=== PATIENT | female | born 1955 | race Caucasian/White ===

== ENCOUNTER 2022-03-04 10:39 | Emergency (ER) | payer OTHER, SELFPAY ==
--- NOTE | ~2022-03-04 | CT_ITS ---
EXAMINATION: CT abdomen pelvis wo con DATE: 03/04/2022 13:00 INDICATION: Right flank pain. Hematuria. TECHNIQUE: Computed tomography (CT) of the abdomen and pelvis was performed without intravenous contr ast. The dose-length product was 1309.68 mGy-cm. Automated exposure control and iterative reconstruct ion technique were employed. COMPARISON: None. FINDINGS: There are chronic interstitial changes in the right lower lobe with honeycombing, likely ch ronic. Heart size normal. No significant pleural or pericardial effusion. Mild atherosclerosis withou t aneurysm. No lymphadenopathy. No abnormal pelvic masses or fluid collections. Colonic diverticulosi s without evidence for diverticulitis. Nonobstructive bowel pattern. There are probable appendectomy changes. There are bilateral renal parapelvic cysts. There is a 5 mm distal right ureteral stone with moderate hydronephrosis. There is an 11 mm distal left ureteral stone with moderate left hydronephro sis. There is left renal atrophy. There are nonobstructing bilateral renal stones. Bladder is unremar kable. There are gallstones. There is nodular appearance to the liver surface, compatible with cirrho sis. There is splenomegaly. The pancreas, right adrenal gland are unremarkable. There is a 2 cm left adrenal mass measuring 15 Hounsfield units, most likely benign adenoma. IMPRESSION: 1. Bilateral distal ureteral stones in the pelvis with moderate bilateral hydroureteronephrosis. Left renal atrophy. 2: Cholelithiasis. 3: Cirrhosis of the liver with splenomegaly. 4: Left adrenal mass, most likely benign adenoma measuring 2 cm. Reviewed, dictated and finalized at location A. IMPRESSION: 1. Bilateral distal ureteral stones in the pelvis with moderate bilateral hydro ureteronephrosis. Left renal atrophy. 2: Cholelithiasis. 3: Cirrhosis of the liver with splenomegaly. 4: Left adrenal mass, most likely benign adenoma measuring 2 cm.
[2022-03-04 10:40] VITALS: BP 158/87; PULSE 103; RESP 20; TEMP 36.3; O2SAT 96
--- NOTE | 2022-03-04 11:39 | ED.ABDPAIN ---
HPI - Abdominal Pain General Chief Complaint: Urogenital-Female Stated Complaint: Blood in urine /pain in lower radiating to leg Time Seen by Provider: 03/04/22 10:43 Source: patient and RN notes reviewed Mode of arrival: ambulatory Limitations: no limitations History of Present Illness MD elicited complaint: flank pain Pertinent past history: diverticulitis and past UTI Onset (ago): day(s) (1) Pain Consistency: constant Location: R flank Severity: moderate Pain scale (0-10): 5 Quality: cramping and dull Radiation: suprapubic Migration to: other (down the right lower limb) Exacerbating factors: nothing Relieving factors: nothing Associated symptoms: nausea Related Data Patient : No Home Medications Medication Instructions Recorded Confirmed Imuran 75 mg BYMOUTH DAILY 03/04/22 03/04/22 gabapentin 100 mg capsule 100 mg PO HS 03/04/22 03/04/22 obeticholic acid 10 mg tablet 10 mg PO DAILY 03/04/22 03/04/22 (Ocaliva) ursodiol 300 mg capsule See Rx Instructions .Route .COMPLEX 03/04/22 03/04/22 Allergies Allergy/AdvReac Type Severity Reaction Status Date / Time latex Allergy Hives Verified 03/04/22 11:17 morphine Allergy Hives Verified 03/04/22 11:17 shellfish derived Allergy Swelling Verified 03/04/22 11:17 of Lip/Tongue/Throat Review of Systems Review of Systems: All systems reviewed & are unremarkable except as noted in HPI and below Constitutional: Constitutional: Reports no additional constitutional complaints Eyes: Eyes: Reports no additional eye complaints ENT: Reports system reviewed and no additional complaints, except as documented Cardiovascular: Cardiovascular: Reports no additional cardiovascular complaints Respiratory: Respiratory: Reports no additional respiratory complaints Gastrointestinal: Gastrointestinal: Reports no additional gastrointestinal complaints Genitourinary: Genitourinary: Reports flank pain Musculoskeletal: Musculoskeletal: Reports no additional musculoskeletal complaints Integumentary/Breasts: Skin/Breast: Reports system reviewed and no additional complaints, except as docu Neurologic: Reports system reviewed and no additional complaints, except as documented Psychiatric: Psychiatric: Reports no additional psychiatric complaints Endocrine: Endocrine: Reports no additional endocrine complaints Hematologic/Lymphatic: Hematologic/Lymphatic: Reports no additional hematologic/lymphatic complaints Allergic/Immunologic: Allergic/Immunologic: Reports no additional allergic/immunologic complaints PMFSH Past Medical History Medical History UTI (urinary tract infection) Exam Const: General: no acute distress Nutritional Appearance: well nourished Orientation/consciousness: patient oriented x3 Limitations: no limitations HENMT: Head: normal to inspection Ears: external ears normal, TM's normal bilaterally and EAC's normal General nose exam: Normal external nose present and Normal nares present Face and sinus: normal facial exam and sinuses nontender Mouth: Yes Normal oral and palatal mucosa present and Yes moist mucous membranes Teeth and gingiva: dentition normal Throat: posterior oropharynx normal Eyes: Conjunctivae: conjunctivae normal Pupils: Equal, round and reactive pupils present EOM: EOMs intact bilaterally Neck: Neck: normal visual inspection, no lymphadenopathy and no meningeal signs Chest: Chest palpation & inspection: normal inspection of the chest Resp: Effort & Inspection: normal respiratory effort Auscultation: clear to auscultation bilaterally Cardio: Rate: regular rate Rhythm: regular rhythm GI: GI Palp: Yes Soft to palpation and Yes Tenderness to palpation present (GI) (minimally tender right flank and right CVA) Auscultation: normal bowel sounds : General: Yes bladder normal to palpation and Yes no CVA tenderness Bimanual exam- vagina & uterus: bladder gia
[2022-03-04] MEDS: ONDANSETRON HCL ODT 4 MG TABLET PO (11:44)
[2022-03-04] MEDS: traMADol HCL (*CRX) 50 MG TABLET PO (11:44)
[2022-03-04 11:48] LABS: Add Urine Microscopic? YES; Appearance Urine Clear (Clear); Bilirubin Urine Negative (Negative); Blood Urine 2+ (Negative); Color Urine Light Yellow (Yellow); Glucose Urine UA Negative (Negative); Ketones Urine Negative (Negative); Leukocyte Esterase Ur Negative LEU/UL (Negative); Nitrate Urine Negative (Negative); Protein Urine Negative (Negative); Specific Grav Ur 1.015 (1.010-1.020); Urobilinogen Urine 0.2 mg/dL (0.2-1.0)
[2022-03-04 12:03] LABS: Basophils Absolute Auto 0.05 K/mm3 (0.00-0.10); Basophils Percent Auto 0.5 % (0.0-1.0); Eosinophils Absolute Auto 0.03 K/mm3 (0.02-0.50); Eosinophils Percent Auto 0.3 % (1.0-6.0); Hematocrit 45.9 % (35.0-49.0); Hemoglobin 14.6 g/dL (12.0-15.0); Immature Granulocyte Absolute 0.07 K/mm3 (0.00-0.00); Immature Granulocyte Percent A 0.7 % (0.0-0.0); Lymphocytes Absolute Auto 1.01 K/mm3 (1.10-4.50); Lymphocytes Percent Auto 10.7 % (18.0-42.0); Mean Corpuscular HGB Conc 31.8 g/dL (32.0-36.0); Mean Corpuscular Hemoglobin 27.9 pg (27.0-31.0); Mean Corpuscular Volume 87.6 fL (78.0-102.0); Monocytes Absolute Auto 0.46 K/mm3 (0.10-0.90); Monocytes Percent Auto 4.9 % (2.0-11.0); Neutrophils Absolute Auto 7.9 K/mm3 (1.7-7.2); Neutrophils Percent Auto 82.9 % (50.0-70.0); Platelet Count Result 179 K/mm3 (150-420); Red Blood Count 5.24 M/mm3 (4.20-5.40); Red Cell Distribution Width 14.6 % (11.6-14.4); White Blood Count 9.5 K/mm3 (4.8-10.8)
[2022-03-04 12:18] LABS: Alanine Aminotransferase 40 U/L (14-59); Albumin Level 3.3 g/dL (3.4-5.0); Alkaline Phosphatase 295 U/L (46-116); Anion Gap 6 mmol/L (8-16); Aspartate Amino Transferase 28 U/L (15-37); Bilirubin,Total 0.8 mg/dL (0.00-1.00); Blood Urea Nitrogen 15 mg/dL (7-18); Calcium 8.7 mg/dL (8.5-10.1); Carbon Dioxide 26 mmol/L (21-32); Chloride 102 mmol/L (98-108); Estimated CRCL calculation 31 ml/min; Estimated Glomerular Filt Rate 26; Glucose 152 mg/dL (70-99); Osmolality Calculated 281 mOsm/kg (285-295); Potassium 3.8 mmol/L (3.5-5.1); Sodium 134 mmol/L (136-145); Total Protein 8.2 g/dL (6.4-8.2)
[2022-03-04] MEDS: cefTRIAXone 1 GM, LIDOCAINE HCL 1% LOCAL INJ 2.1 ML IM (12:49)
[2022-03-04 14:14] VITALS: BP 143/77; PULSE 88; RESP 20; TEMP 36.6; O2SAT 99
== END 2022-03-04 14:24 | disposition home or self-care (01) ==
PROVIDERS: Emergency Provider Emergency Medicine; PCP Nurse Practitioner Family
DX: N39.0 Urinary tract infection, site not specified (principal); N20.1 Calculus of ureter
CPT/HCPCS: 36415; 74176; 80053; 81001; 83605; 85025; 96372; 99284; A9270; J0696

== ENCOUNTER 2022-05-15 08:17 | Outpatient (CLI) | payer OTHER, SELFPAY ==
--- NOTE | ~2022-05-15 | US_ITS ---
EXAMINATION: US abdomen limited DATE: 05/15/2022 09:01 INDICATION: Primary biliary cholangitis; autoimmune hepatitis TECHNIQUE: Multiple grayscale and Doppler ultrasound images of limited portions of the abdomen were o btained. COMPARISON: None available. FINDINGS: The visualized portions of the pancreas are normal. The liver is enlarged with normal echog enicity and heterogeneous echotexture. No surface nodularity. Normal hepatopetal flow in the main por [place] vein. The gallbladder contains stones, with no abnormal wall thickening or pericholecystic fluid. The common bile duct measures 3 mm. There was no sonographic Sena sign. IMPRESSION: Heterogeneous liver parenchyma as can be seen with hepatitis, steatosis, and fibrosis. Cholelithiasis . 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 Cholelithiasis.
[2022-05-15 08:44] LABS: Basophils Absolute Auto 0.06 K/mm3 (0.00-0.10); Eosinophils Absolute Auto 0.26 K/mm3 (0.02-0.50); Eosinophils Percent Auto 4.4 % (1.0-6.0); Hematocrit 43.8 % (35.0-49.0); Hemoglobin 13.4 g/dL (12.0-15.0); Immature Granulocyte Absolute 0.03 K/mm3 (0.00-0.00); Immature Granulocyte Percent A 0.5 % (0.0-0.0); Lymphocytes Percent Auto 25.3 % (18.0-42.0); Mean Corpuscular HGB Conc 30.6 g/dL (32.0-36.0); Mean Corpuscular Hemoglobin 27.6 pg (27.0-31.0); Mean Corpuscular Volume 90.1 fL (78.0-102.0); Mean Platelet Volume 10.1 fl (9.2-11.8); Monocytes Percent Auto 8.4 % (2.0-11.0); Neutrophils Absolute Auto 3.6 K/mm3 (1.7-7.2); Neutrophils Percent Auto 60.4 % (50.0-70.0); Platelet Count Result 185 K/mm3 (150-420); Red Blood Count 4.86 M/mm3 (4.20-5.40); Red Cell Distribution Width 13.9 % (11.6-14.4); White Blood Count 5.9 K/mm3 (4.8-10.8)
[2022-05-15 08:58] LABS: INR 1.1; Prothrombin Time 11.7 Seconds (9.50-12.10)
[2022-05-15 09:40] LABS: Alanine Aminotransferase 51 U/L (14-59); Albumin Level 3.4 g/dL (3.4-5.0); Alkaline Phosphatase 341 U/L (46-116); Anion Gap 6 mmol/L (8-16); Aspartate Amino Transferase 28 U/L (15-37); Bilirubin,Total 0.7 mg/dL (0.00-1.00); Blood Urea Nitrogen 12 mg/dL (7-18); Calcium 8.7 mg/dL (8.5-10.1); Carbon Dioxide 32 mmol/L (21-32); Chloride 106 mmol/L (98-108); Estimated Glomerular Filt Rate > 60; GGT 494 U/L (5-55); Glucose 119 mg/dL (70-99); Osmolality Calculated 298 mOsm/kg (285-295); Potassium 4.5 mmol/L (3.5-5.1); Sodium 144 mmol/L (136-145); Total Protein 7.9 g/dL (6.4-8.2)
[2022-05-20 19:16] LABS: Alpha Fetoprotein Tumor Marker 4.9 ng/mL (<6.1)
== END 2022-05-15 08:18 | disposition home or self-care (01) ==
LOC: CHSLAB 08:19
PROVIDERS: PCP Nurse Practitioner Family
DX: K74.3 Primary biliary cirrhosis (principal); K75.4 Autoimmune hepatitis
CPT/HCPCS: 36415; 76705; 80053; 82103; 82105; 82977; 85025; 85610

== ENCOUNTER 2022-09-10 12:15 | Outpatient (CLI) | payer MEDICARE, SELFPAY ==
[2022-09-10 12:37] LABS: Basophils Absolute Auto 0.05 K/mm3 (0.00-0.10); Basophils Percent Auto 0.7 % (0.0-1.0); Eosinophils Absolute Auto 0.14 K/mm3 (0.02-0.50); Hematocrit 42.3 % (35.0-42.0); Hemoglobin 13.1 g/dL (11.7-13.8); Immature Granulocyte Absolute 0.06 K/mm3 (0.00-0.00); Immature Granulocyte Percent A 0.9 % (0.0-0.0); Lymphocytes Absolute Auto 1.74 K/mm3 (1.10-4.50); Lymphocytes Percent Auto 25.4 % (18.0-42.0); Mean Corpuscular Hemoglobin 26.6 pg (27.0-31.0); Mean Platelet Volume 9.9 fl (9.2-11.8); Monocytes Absolute Auto 0.56 K/mm3 (0.10-0.90); Monocytes Percent Auto 8.2 % (2.0-11.0); Neutrophils Absolute Auto 4.3 K/mm3 (1.7-7.2); Neutrophils Percent Auto 62.8 % (50.0-70.0); Platelet Count Result 168 K/mm3 (150-420); Red Blood Count 4.92 M/mm3 (4.20-5.40); Red Cell Distribution Width 14.6 % (11.6-14.4); White Blood Count 6.9 K/mm3 (4.8-10.8)
[2022-09-10 12:51] LABS: Prothrombin Time 11.2 Seconds (9.50-12.10)
[2022-09-10 13:25] LABS: Alanine Aminotransferase 43 U/L (14-59); Albumin Level 3.3 g/dL (3.4-5.0); Alkaline Phosphatase 251 U/L (46-116); Anion Gap 8 mmol/L (8-16); Aspartate Amino Transferase 23 U/L (15-37); Bilirubin Direct 0.2 mg/dL (0-0.2); Bilirubin,Total 0.5 mg/dL (0.00-1.00); Blood Urea Nitrogen 8 mg/dL (7-18); Calcium 8.5 mg/dL (8.5-10.1); Carbon Dioxide 29 mmol/L (21-32); Chloride 104 mmol/L (98-108); Estimated Glomerular Filt Rate > 60; GGT 337 U/L (5-55); Glucose 133 mg/dL (70-99); Osmolality Calculated 292 mOsm/kg (285-295); Potassium 3.9 mmol/L (3.5-5.1); Sodium 141 mmol/L (136-145); Total Protein 7.9 g/dL (6.4-8.2)
[2022-09-14 14:58] LABS: Alpha Fetoprotein Tumor Marker 4.8 ng/mL (<6.1)
== END 2022-09-10 12:16 | disposition home or self-care (01) ==
LOC: CHSLAB 12:21
PROVIDERS: PCP Nurse Practitioner Family
DX: K74.3 Primary biliary cirrhosis (principal); K75.4 Autoimmune hepatitis
CPT/HCPCS: 36415; 80053; 82105; 82248; 82977; 85025; 85610

== ENCOUNTER 2022-10-11 07:21 | Outpatient (CLI) | payer MEDICARE, SELFPAY ==
--- NOTE | ~2022-10-11 | MR_ITS ---
EXAMINATION: MR abdomen wo/w con DATE: 10/11/2022 08:31 INDICATION: Hepatic fibrosis. TECHNIQUE: Magnetic resonance imaging (MRI) of the abdomen was performed without and with 20 mL Multi Michael intravenous contrast. COMPARISON: CT abdomen and pelvis 04/03/2022, abdomen ultrasound 05/15/2022 FINDINGS: The liver demonstrates steatosis, surface nodularity, and hypertrophy of left lateral segment, consis tent with cirrhosis. The gallbladder is normal in size and contains gallstones. There is mild splenom egaly. The pancreas and right adrenal gland are normal. There is a 1.6 cm mass in left adrenal gland containing microscopic fat, consistent with an adenoma. Right kidney is normal. There is severe left hydronephrosis and hydroureter. There is mild atrophy of left kidney. There are no pathologically enl arged lymph nodes. There is no free intraperitoneal fluid. IMPRESSION: 1. Severe left hydronephrosis and hydroureter. Mild left kidney atrophy. Note that a left ureteral st one was seen on the prior CT. 2. Cirrhosis of the liver with portal venous hypertension. Reviewed, dictated and finalized at location A. IMPRESSION: 1. Severe left hydronephrosis and hydroureter. Mild left kidney atrophy. Note t hat a left ureteral stone was seen on the prior CT. 2. Cirrhosis of the liver with portal venous hypertension.
[2022-10-11 08:55] LABS: Basophils Absolute Auto 0.05 K/mm3 (0.00-0.10); Basophils Percent Auto 0.7 % (0.0-1.0); Eosinophils Absolute Auto 0.17 K/mm3 (0.02-0.50); Eosinophils Percent Auto 2.4 % (1.0-6.0); Hematocrit 42.5 % (35.0-42.0); Hemoglobin 13.3 g/dL (11.7-13.8); Immature Granulocyte Absolute 0.05 K/mm3 (0.00-0.00); Immature Granulocyte Percent A 0.7 % (0.0-0.0); Lymphocytes Absolute Auto 1.73 K/mm3 (1.10-4.50); Lymphocytes Percent Auto 24.1 % (18.0-42.0); Mean Corpuscular HGB Conc 31.3 g/dL (32.0-36.0); Mean Corpuscular Hemoglobin 26.7 pg (27.0-31.0); Mean Corpuscular Volume 85.2 fL (78.0-102.0); Mean Platelet Volume 9.9 fl (9.2-11.8); Monocytes Absolute Auto 0.55 K/mm3 (0.10-0.90); Monocytes Percent Auto 7.7 % (2.0-11.0); Neutrophils Absolute Auto 4.6 K/mm3 (1.7-7.2); Neutrophils Percent Auto 64.4 % (50.0-70.0); Platelet Count Result 189 K/mm3 (150-420); Red Blood Count 4.99 M/mm3 (4.20-5.40); Red Cell Distribution Width 14.6 % (11.6-14.4); White Blood Count 7.2 K/mm3 (4.8-10.8)
[2022-10-11 09:18] LABS: INR 1.1; Prothrombin Time 11.7 Seconds (9.50-12.10)
[2022-10-11 09:33] LABS: Alanine Aminotransferase 44 U/L (14-59); Alkaline Phosphatase 237 U/L (46-116); Anion Gap 6 mmol/L (8-16); Aspartate Amino Transferase 26 U/L (15-37); Bilirubin Direct 0.2 mg/dL (0-0.2); Bilirubin,Total 0.7 mg/dL (0.00-1.00); Blood Urea Nitrogen 8 mg/dL (7-18); Calcium 8.5 mg/dL (8.5-10.1); Carbon Dioxide 30 mmol/L (21-32); Chloride 104 mmol/L (98-108); Estimated Glomerular Filt Rate > 60; GGT 325 U/L (5-55); Glucose 153 mg/dL (70-99); Osmolality Calculated 291 mOsm/kg (285-295); Potassium 4.5 mmol/L (3.5-5.1); Sodium 140 mmol/L (136-145); Total Protein 7.6 g/dL (6.4-8.2)
[2022-10-18 19:07] LABS: Alpha Fetoprotein Tumor Marker 4.6 ng/mL (<6.1)
== END 2022-10-11 07:22 | disposition home or self-care (01) ==
PROVIDERS: PCP Nurse Practitioner Family
DX: K74.02 Hepatic fibrosis, advanced fibrosis (principal); C24.0 Malignant neoplasm of extrahepatic bile duct; N13.30 Unspecified hydronephrosis; N26.1 Atrophy of kidney (terminal); K74.60 Unspecified cirrhosis of liver; K76.6 Portal hypertension
CPT/HCPCS: 36415; 74183; 80053; 82103; 82105; 82248; 82977; 85025; 85610; A9577

== ENCOUNTER 2022-11-14 13:38 | Outpatient (CLI) | payer MEDICARE, SELFPAY ==
[2022-11-14 14:02] LABS: Basophils Absolute Auto 0.04 K/mm3 (0.00-0.10); Basophils Percent Auto 0.6 % (0.0-1.0); Eosinophils Absolute Auto 0.17 K/mm3 (0.02-0.50); Eosinophils Percent Auto 2.7 % (1.0-6.0); Hematocrit 42.8 % (35.0-42.0); Hemoglobin 13.1 g/dL (11.7-13.8); Immature Granulocyte Absolute 0.04 K/mm3 (0.00-0.00); Immature Granulocyte Percent A 0.6 % (0.0-0.0); Lymphocytes Absolute Auto 2.01 K/mm3 (1.10-4.50); Lymphocytes Percent Auto 32.4 % (18.0-42.0); Mean Corpuscular HGB Conc 30.6 g/dL (32.0-36.0); Mean Corpuscular Hemoglobin 25.3 pg (27.0-31.0); Mean Corpuscular Volume 82.8 fL (78.0-102.0); Mean Platelet Volume 9.8 fl (9.2-11.8); Monocytes Absolute Auto 0.54 K/mm3 (0.10-0.90); Monocytes Percent Auto 8.7 % (2.0-11.0); Neutrophils Absolute Auto 3.4 K/mm3 (1.7-7.2); Platelet Count Result 175 K/mm3 (150-420); Red Blood Count 5.17 M/mm3 (4.20-5.40); Red Cell Distribution Width 14.3 % (11.6-14.4); White Blood Count 6.2 K/mm3 (4.8-10.8)
[2022-11-14 14:53] LABS: Alanine Aminotransferase 61 U/L (14-59); Albumin Level 3.2 g/dL (3.4-5.0); Alkaline Phosphatase 299 U/L (46-116); Anion Gap 7 mmol/L (8-16); Aspartate Amino Transferase 38 U/L (15-37); Bilirubin,Total 0.6 mg/dL (0.00-1.00); Blood Urea Nitrogen 14 mg/dL (7-18); Calcium 8.6 mg/dL (8.5-10.1); Carbon Dioxide 29 mmol/L (21-32); Chloride 102 mmol/L (98-108); Estimated Glomerular Filt Rate > 60; Free T3 2.46 pg/mL (2.18-3.98); Free T4 Free Thyroxine 0.96 ng/dL (0.76-1.46); Glucose 157 mg/dL (70-99); Osmolality Calculated 289 mOsm/kg (285-295); Potassium 3.9 mmol/L (3.5-5.1); Sodium 138 mmol/L (136-145); Thyroid Stimulating Hormone 2.76 uIU/mL (0.36-3.74); Total Protein 7.9 g/dL (6.4-8.2)
[2022-11-19 03:59] LABS: T3 Reverse 21 ng/dL (8-25)
== END 2022-11-14 13:39 | disposition home or self-care (01) ==
LOC: CHSLAB 13:47
PROVIDERS: PCP Nurse Practitioner Family
DX: R94.6 Abnormal results of thyroid function studies (principal)
CPT/HCPCS: 36415; 80053; 84439; 84443; 84481; 84482; 85025

== ENCOUNTER 2023-01-10 09:06 | Outpatient (RCR) | payer MEDICARE, SELFPAY ==
[2023-01-10 09:23] LABS: Basophils Absolute Auto 0.07 K/mm3 (0.00-0.10); Basophils Percent Auto 1.3 % (0.0-1.0); Eosinophils Absolute Auto 0.15 K/mm3 (0.02-0.50); Eosinophils Percent Auto 2.7 % (1.0-6.0); Hematocrit 41.4 % (35.0-42.0); Hemoglobin 12.7 g/dL (11.7-13.8); Immature Granulocyte Absolute 0.03 K/mm3 (0.00-0.00); Immature Granulocyte Percent A 0.5 % (0.0-0.0); Lymphocytes Absolute Auto 1.51 K/mm3 (1.10-4.50); Lymphocytes Percent Auto 27.2 % (18.0-42.0); Mean Corpuscular HGB Conc 30.7 g/dL (32.0-36.0); Mean Corpuscular Hemoglobin 24.8 pg (27.0-31.0); Mean Corpuscular Volume 80.9 fL (78.0-102.0); Monocytes Absolute Auto 0.42 K/mm3 (0.10-0.90); Monocytes Percent Auto 7.6 % (2.0-11.0); Neutrophils Absolute Auto 3.4 K/mm3 (1.7-7.2); Neutrophils Percent Auto 60.7 % (50.0-70.0); Platelet Count Result 167 K/mm3 (150-420); Red Blood Count 5.12 M/mm3 (4.20-5.40); Red Cell Distribution Width 15.7 % (11.6-14.4); White Blood Count 5.6 K/mm3 (4.8-10.8)
[2023-01-10 09:50] LABS: Alanine Aminotransferase 73 U/L (14-59); Albumin Level 3.1 g/dL (3.4-5.0); Alkaline Phosphatase 329 U/L (46-116); Anion Gap 9 mmol/L (8-16); Aspartate Amino Transferase 48 U/L (15-37); Bilirubin,Total 0.7 mg/dL (0.00-1.00); Blood Urea Nitrogen 7 mg/dL (7-18); Calcium 8.4 mg/dL (8.5-10.1); Carbon Dioxide 25 mmol/L (21-32); Chloride 106 mmol/L (98-108); Estimated Glomerular Filt Rate 56; Glucose 185 mg/dL (70-99); Osmolality Calculated 293 mOsm/kg (285-295); Potassium 4.5 mmol/L (3.5-5.1); Sodium 140 mmol/L (136-145); Total Protein 7.6 g/dL (6.4-8.2)
== END 2023-04-10 23:59 | disposition home or self-care (01) ==
LOC: CHSLAB 09:06
PROVIDERS: PCP Nurse Practitioner Family
DX: K74.3 Primary biliary cirrhosis (principal); K75.4 Autoimmune hepatitis
CPT/HCPCS: 36415; 80053; 85025